=== PATIENT | male | born 1960 | race Caucasian/White ===

== ENCOUNTER 2017-09-01 20:36 | Observation (INO) | payer MEDICAID, OTHER ==
[~2017-09-01 20:36] MED LIST: ALPR1TAB3 PO; PERC5TAB12 PO
[2017-09-01] MEDS ORDERED: IOHEXOL 350 MG/ML 10 ML VIAL (for RAD DIAG) IVCONTRAST ONE (20:37)
[2017-09-01 20:43] VITALS: BP 168/95; PULSE 89; RESP 18; TEMP 98.2; O2SAT 96
--- NOTE | 2017-09-01 20:59 | PD ---
HPI Chief Complaint: Chest Pain Time Seen by Provider: 20:55 Travel History International Travel<30 days: No Contact w/Intl Traveler<30days: No Traveled to known affect area: No History of Present Illness HPI This is a 56-year-old male with history of tobacco use who presents for evaluation of chest pain. He reports that symptoms started last night when he was watching TV is mild sharp left-sided chest pain with some paresthesias in the proximal left arm. Throughout the day today he had some tightness in his chest. Symptoms worsened tonight which prompted evaluation. The pain is a sharp pain that radiates in the left side of his chest and back. No obvious aggravating or relieving factors. Some associated dyspnea and nausea. Denies cough, congestion, neck pain, head pain, abdominal pain, denies lower extremity edema. He reports that one month ago he traveled here from [place] and [address] trip. Denies any history of DVT or PE. Denies history of coronary artery disease. No other complaints. PFSH Past Medical History Diminished Hearing: No Social History Alcohol Use: Yes Tobacco Use: Yes Substance Use: Yes (COCAINE, NARCS) Allergies-Medications (Allergen,Severity, Reaction): Coded Allergies: duloxetine (Verified Allergy, Severe, rash, 09/01/17) Reported Meds & Prescriptions Reported Meds & Active Scripts Active Reported Famotidine 10 Mg Tab 10 Mg PO BID Finasteride 5 Mg Tab 5 Mg DAILY Do not crush. Oxycodone (Oxycodone HCl) 5 Mg Tab 5 Mg PO Q6H PRN Gabapentin 600 Mg Tab 1,200 Mg PO TID Review of Systems Except as stated in HPI: all other systems reviewed are Neg Physical Exam Narrative GENERAL: Well-developed well-nourished male in no acute distress SKIN: Warm and dry. HEAD: Atraumatic. Normocephalic. EYES: Pupils equal and round. No scleral icterus. No injection or drainage. ENT: No nasal bleeding or discharge. Mucous membranes pink and moist. NECK: Trachea midline. No JVD. CARDIOVASCULAR: Regular rate and rhythm. No murmur appreciated. RESPIRATORY: No accessory muscle use. Clear to auscultation. Breath sounds equal bilaterally. GASTROINTESTINAL: Abdomen soft, non-tender, nondistended. Hepatic and splenic margins not palpable. MUSCULOSKELETAL: No obvious deformities. No clubbing. No cyanosis. No edema. NEUROLOGICAL: Awake and alert. No obvious cranial nerve deficits. Motor grossly within normal limits. Normal speech. PSYCHIATRIC: Appropriate mood and affect; insight and judgment normal. Data Data Last Documented VS Vital Signs Date Time Temp Pulse Resp B/P (MAP) Pulse Ox O2 Delivery O2 Flow Rate FiO2 09/02/17 00:05 79 18 108/77 (87) 99 Room Air 09/01/17 20:43 98.2 Orders Orders Electrocardiogram (09/01/17 20:55) Basic Metabolic Panel (Bmp) (09/01/17 20:55) Ckmb (Isoenzyme) Profile (09/01/17 20:55) Complete Blood Count With Diff (09/01/17 20:55) Magnesium (Mg) (09/01/17 20:55) Prothrombin Time / Inr (Pt) (09/01/17 20:55) Act Partial Throm Time (Ptt) (09/01/17 20:55) Troponin I (09/01/17 20:55) Ecg Monitoring (09/01/17 20:55) Bilateral Bp Monitoring (09/01/17 20:55) Iv Access Insert/Monitor (09/01/17 20:55) Oximetry (09/01/17 20:55) Oxygen Administration (09/01/17 20:55) Aspirin Chew (Aspirin Chew) (09/01/17 21:00) Sodium Chloride 0.9% Flush (Ns Flush) (09/01/17 21:00) Nitroglycerin Sl (Nitrostat Sl) (09/01/17 21:00) Ct Pulmonary Angiogram (09/01/17 20:55) Chest, Pa & Lat (09/01/17 20:55) CKMB (09/01/17 21:05) CKMB% (09/01/17 21:05) Morphine Inj (Morphine Inj) (09/01/17 23:00) Ondansetron Odt (Zofran Odt) (09/01/17 23:00) Iohexol 350 Inj (Omnipaque 350 Inj) (09/01/17 20:37) Admit Order (Ed Use Only) (09/02/17 00:25) Labs Laboratory Tests Test 09/01/17 21:05 White Blood Count 6.4 TH/MM3 Red Blood Count 5.02 MIL/MM3 Hemoglobin 15.5 GM/DL Hematocrit 43.7 % Mean Corpuscular Volume 87.1 FL Mean Corpuscular Hemoglobin 30.9 PG Mean Corpuscular Hemoglobin Concent 35.4 % Red Cell Distribution Width 13.2 % Platelet Count 211 TH/MM3 Mean Platelet Volume 7.3 FL Neutrophils (%) (Auto) 52.9 % Lymphocytes (%) (Auto) 39.7 % Monocytes (%) (Auto) 5.8 % Eosinophils (%) (Auto) 1.3 % Basophils (%) (Auto) 0.3 % Neutrophils # (Auto) 3.4 TH/MM3 Lymphocytes # (Auto) 2.5 TH/MM3 Monocytes # (Auto) 0.4 TH/MM3 Eosinophils # (Auto) 0.1 TH/MM3 Basophils # (Auto) 0.0 TH/MM3 CBC Comment DIFF FINAL Differential Comment Prothrombin Time 10.5 SEC Prothromb Time International Ratio 1.0 RATIO Activated Partial Thromboplast Time 27.1 SEC Blood Urea Nitrogen 9 MG/DL Creatinine 0.84 MG/DL Random Glucose 96 MG/DL Calcium Level 8.7 MG/DL Magnesium Level 2.0 MG/DL Sodium Level 141 MEQ/L Potassium Level 3.8 MEQ/L Chloride Level 106 MEQ/L Carbon Dioxide Level 25.4 MEQ/L Anion Gap 10 MEQ/L Estimat Glomerular Filtration Rate 95 ML/MIN Total Creatine Kinase 118 U/L Creatine Kinase MB 1.4 NG/ML Troponin I LESS THAN 0.02 NG/ML MDM Medical Decision Making Medical Screen Exam Complete: Yes Emergency Medical Condition: Yes Medical Record Reviewed: Yes Differential Diagnosis Acute coronary syndrome, costochondritis, aortic dissection, pulmonary embolism , pneumothorax, hemothorax Narrative Course The patient was placed on ECG monitoring pulse oximetry, 12-lead EKG was obtained. Lab work, chest x-ray, CT pulmonary angiogram ordered. The patient took 81 mg of aspirin today, 243 mg additional aspirin ordered. Sublingual nitroglycerin ordered. The patient's pain improved with use of sublingual nitroglycerin. He was given morphine for back pain. At the end of my shift the patient was signed out to Dr. Hicks pending CT pulmonary angiogram results. Joe Dewitt September 01, 2017 20:59
[2017-09-01] MEDS ORDERED: SODIUM CHLORIDE 0.9% FLUSH 10 ML FLUSH IVF PRN (21:00)
[2017-09-01] MEDS ORDERED: ASPIRIN 81 MG CHEW TAB PO ONE (21:00)
[2017-09-01 21:01] VITALS: BP 136/97; PULSE 80; RESP 18; O2SAT 98
[2017-09-01] MEDS ORDERED: OXYC-392 PO (21:01)
[2017-09-01] MEDS ORDERED: GABA600T PO (21:01)
[2017-09-01] MEDS ORDERED: FINA5TAB2 (21:01)
[2017-09-01] MEDS ORDERED: FAMO1TAB30 PO (21:01)
[2017-09-01 21:03] VITALS: O2SAT 98
[2017-09-01] MEDS: NITROGLYCERIN 0.4 MG SL 25 TABS/BTL SL SCH ×3 (21:05→21:14)
--- NOTE | 2017-09-01 21:20 | RADRPT ---
EXAM DATE/TIME: 09/01/2017 21:05 [facility] COMPARISON: CHEST SINGLE AP, November 05, 2014, 14:18. INDICATIONS : Chest pain MEDICAL HISTORY : SURGICAL HISTORY : None. ENCOUNTER: Initial ACUITY: 4 - 6 days PAIN SCORE: 3/10 LOCATION: Bilateral chest FINDINGS: PA and lateral views of the chest demonstrate the lungs to be symmetrically aerated without evidence of mass, infiltrate or effusion. The cardiomediastinal contours are unremarkable. Osseous structure s are intact. CONCLUSION: No acute disease. Tanmay Pulliam MD on September 01, 2017 at 21:16 Board Certified Radiologist. This report was verified electronically.
[2017-09-01 21:21] VITALS: BP_SYST 137; BP_SYST 140; BP_DIAS 67; BP_DIAS 73; PULSE 78; RESP 18; O2SAT 98
[2017-09-01 21:30] LABS: AUTOMATED NEUTROPHIL # 3.4 TH/MM3 (1.8-7.7); BASOPHIL % 0.3 % (0.0-2.0); EOSINOPHIL # 0.1 TH/MM3 (0-0.4); EOSINOPHIL % 1.3 % (0.0-4.0); HEMATOCRIT 43.7 % (39.0-51.0); HEMOGLOBIN 15.5 GM/DL (13.0-17.0); LYMPH % 39.7 % (9.0-44.0); LYMPHOCYTE # 2.5 TH/MM3 (1.0-4.8); MEAN CELL VOLUME 87.1 FL (80.0-100.0); MEAN CORPUSCULAR HEMOGLOBIN 30.9 PG (27.0-34.0); MEAN CORPUSCULAR HGB CONC 35.4 % (32.0-36.0); MEAN PLATELET VOLUME 7.3 FL (7.0-11.0); MONO % 5.8 % (0.0-8.0); MONOCYTE # 0.4 TH/MM3 (0-0.9); NEUT % 52.9 % (16.0-70.0); PLATELET COUNT 211 TH/MM3 (150-450); RED BLOOD COUNT 5.02 MIL/MM3 (4.50-5.90); RED CELL DISTRIBUTION WIDTH 13.2 % (11.6-17.2); WHITE BLOOD COUNT 6.4 TH/MM3 (4.0-11.0)
[2017-09-01 21:42] LABS: PROTHROMBIN TIME - PATIENT 10.5 SEC (9.8-11.6)
[2017-09-01 22:07] LABS: BICARBONATE 25.4 MEQ/L (21.0-32.0); BLOOD UREA NITROGEN 9 MG/DL (7-18); CALCIUM 8.7 MG/DL (8.5-10.1); CHLORIDE 106 MEQ/L (98-107); CREATININE 0.84 MG/DL (0.60-1.30); GLOMERULAR FILTRATION RATE 95 ML/MIN (>89); GLUCOSE,RANDOM 96 MG/DL (74-106); SODIUM (NA) 141 MEQ/L (136-145)
[2017-09-01 22:13] LABS: TROPONIN I LESS THAN 0.02 NG/ML (0.02-0.05)
[2017-09-01 22:40] VITALS: BP 118/67; PULSE 70; RESP 16; O2SAT 98
[2017-09-01] MEDS ORDERED: ONDANSETRON ODT 4 MG TAB PO ONE (23:00)
[2017-09-01] MEDS ORDERED: MORPHINE SULFATE 4 MG/ML INJ IV PUSH ONE (23:00)
--- NOTE | 2017-09-01 23:07 | PD ---
Data Data Last Documented VS Vital Signs Date Time Temp Pulse Resp B/P (MAP) Pulse Ox O2 Delivery O2 Flow Rate FiO2 09/02/17 00:05 79 18 108/77 (87) 99 Room Air 09/01/17 20:43 98.2 Orders Orders Electrocardiogram (09/01/17 20:55) Basic Metabolic Panel (Bmp) (09/01/17 20:55) Ckmb (Isoenzyme) Profile (09/01/17 20:55) Complete Blood Count With Diff (09/01/17 20:55) Magnesium (Mg) (09/01/17 20:55) Prothrombin Time / Inr (Pt) (09/01/17 20:55) Act Partial Throm Time (Ptt) (09/01/17 20:55) Troponin I (09/01/17 20:55) Ecg Monitoring (09/01/17 20:55) Bilateral Bp Monitoring (09/01/17 20:55) Iv Access Insert/Monitor (09/01/17 20:55) Oximetry (09/01/17 20:55) Oxygen Administration (09/01/17 20:55) Aspirin Chew (Aspirin Chew) (09/01/17 21:00) Sodium Chloride 0.9% Flush (Ns Flush) (09/01/17 21:00) Nitroglycerin Sl (Nitrostat Sl) (09/01/17 21:00) Ct Pulmonary Angiogram (09/01/17 20:55) Chest, Pa & Lat (09/01/17 20:55) CKMB (09/01/17 21:05) CKMB% (09/01/17 21:05) Morphine Inj (Morphine Inj) (09/01/17 23:00) Ondansetron Odt (Zofran Odt) (09/01/17 23:00) Iohexol 350 Inj (Omnipaque 350 Inj) (09/01/17 20:37) Admit Order (Ed Use Only) (09/02/17 00:25) Labs Laboratory Tests Test 09/01/17 21:05 White Blood Count 6.4 TH/MM3 Red Blood Count 5.02 MIL/MM3 Hemoglobin 15.5 GM/DL Hematocrit 43.7 % Mean Corpuscular Volume 87.1 FL Mean Corpuscular Hemoglobin 30.9 PG Mean Corpuscular Hemoglobin Concent 35.4 % Red Cell Distribution Width 13.2 % Platelet Count 211 TH/MM3 Mean Platelet Volume 7.3 FL Neutrophils (%) (Auto) 52.9 % Lymphocytes (%) (Auto) 39.7 % Monocytes (%) (Auto) 5.8 % Eosinophils (%) (Auto) 1.3 % Basophils (%) (Auto) 0.3 % Neutrophils # (Auto) 3.4 TH/MM3 Lymphocytes # (Auto) 2.5 TH/MM3 Monocytes # (Auto) 0.4 TH/MM3 Eosinophils # (Auto) 0.1 TH/MM3 Basophils # (Auto) 0.0 TH/MM3 CBC Comment DIFF FINAL Differential Comment Prothrombin Time 10.5 SEC Prothromb Time International Ratio 1.0 RATIO Activated Partial Thromboplast Time 27.1 SEC Blood Urea Nitrogen 9 MG/DL Creatinine 0.84 MG/DL Random Glucose 96 MG/DL Calcium Level 8.7 MG/DL Magnesium Level 2.0 MG/DL Sodium Level 141 MEQ/L Potassium Level 3.8 MEQ/L Chloride Level 106 MEQ/L Carbon Dioxide Level 25.4 MEQ/L Anion Gap 10 MEQ/L Estimat Glomerular Filtration Rate 95 ML/MIN Total Creatine Kinase 118 U/L Creatine Kinase MB 1.4 NG/ML Troponin I LESS THAN 0.02 NG/ML MDM Medical Record Reviewed: Yes Supervised Visit with DICKSON: Yes Narrative Course During the course of the patient's emergency department visit, the patient's history, examination, and differential diagnosis were reviewed with the patient. The patient was placed on a cardiac cath rn with oximetry and frequent blood pressure monitoring. The patient had IV access obtained and blood work sent for analysis. The patient had an EKG done on arrival that shows a sinus rhythm heart rate of 82, QRS duration is 105 ms, QTC 402 ms. The patient on EKG is noted to have an S1 1 nightly 3T inverted in 3. The patient has T-wave inversion in V1. No acute ST segment elevation. The patient was initially provided aspirin 243 mg p.o. 1, nitroglycerin sublingual q. 5 minutes 3 as needed chest pain. The patient was provided morphine 4 mg IV, Zofran 4 mg ODT. The patient's laboratory studies were reviewed and remarkable for a CBC that is within normal limits, basic metabolic profile is within normal limits, magnesium 2, CPK 118, troponin I less than 0.02, PT 10.5, PTT 27.1. Radiology studies were reviewed and remarkable for a chest x-ray that shows no acute cardiopulmonary disease. CTA to rule out PE was pending at the conclusion of Joe shift. The patient' s case was checked out to me for final disposition after CT scan is resulted. I anticipate that the patient will be admitted to the chest pain center for rule out serial cardiac enzyme protocol followed by stress testing if the CTA is negative. The patient CTA is negative for PE or other acute abnormality. The patient's results were discussed with the patient, including the plan of care. I explained that further testing and/ or monitoring is indicated based on the patient's history, examination, and/ or laboratory findings. Therefore, I recommended admission for additional evaluation. The patient expressed understanding and was agreeable with this plan. The patient was admitted to the hospital in stable condition and sent to a bed under the care of the chest pain center. Diagnosis Primary Impression: Chest pain, rule out acute myocardial infarction Admitting Information Admitting Physician Requests: Observation Diana Hicks MD September 01, 2017 23:07
[2017-09-02 00:05] VITALS: BP 108/77; PULSE 79; RESP 18; O2SAT 99
--- NOTE | 2017-09-02 00:22 | RADRPT ---
EXAM DATE/TIME: 09/01/2017 23:34 [facility] COMPARISON: No previous studies available for comparison. INDICATIONS : Left sided chest pain. IV CONTRAST: 80 cc Omnipaque 350 (iohexol) IV RADIATION DOSE: 20.90 CTDIvol (mGy) MEDICAL HISTORY : Substance abuse SURGICAL HISTORY : ENCOUNTER: Initial ACUITY: 1 day PAIN SCALE: 7/10 LOCATION: Left chest TECHNIQUE: Volumetric scanning of the chest was performed using a pulmonary embolism protocol MIP images were re constructed. Using automated exposure control and adjustment of the mA and/or kV according to patien t size, radiation dose was kept as low as reasonably achievable to obtain optimal diagnostic quality images. DICOM format image data is available electronically for review and comparison. Follow-up recommendations for detected pulmonary nodules are based at a minimum on nodule size and pa tient risk factors according to Fleischner Society Guidelines. FINDINGS: No filling defects to suggest pulmonary embolus. Dependent atelectasis present in the lungs. There is no hilar, mediastinal or axillary adenopathy. No acute findings in the upper abdomen. Small hiatal hernia. CONCLUSION: 1. Negative for pulmonary embolus. No acute findings. Eriberto Juarez MD on September 02, 2017 at 0:10 Board Certified Radiologist. This report was verified electronically.
[2017-09-02] MEDS ORDERED: SODIUM CHLORIDE 0.9% FLUSH 10 ML FLUSH IV FLUSH PRN (00:30)
[2017-09-02] MEDS ORDERED: ACETAMINOPHEN 500 MG CPLT PO PRN (00:30)
[2017-09-02 01:13] LABS: TROPONIN I LESS THAN 0.02 NG/ML (0.02-0.05)
[2017-09-02 01:15] VITALS: BP 145/93; PULSE 64; RESP 18; TEMP 96; O2SAT 97
[2017-09-02] MEDS: ACETAMINOPHEN/HYDROcodone 325 MG/7.5 MG TAB PO PRN ×2 (01:40→06:11)
[2017-09-02 01:41] LABS: BILIRUBIN, URINE NEG (NEG); BLOOD, URINE NEG (NEG); GLUCOSE,URINE NEG (NEG); KETONE, URINE NEG (NEG); MUCUS URINE FEW /lpf (OCC); NITRITE,URINE NEG (NEG); PH, URINE 5.5 (5.0-8.5); URINE COLOR YELLOW (YELLW/STRAW); URINE LEUKOCYTE ESTERASE NEG (NEG)
[2017-09-02 03:48] VITALS: BP 108/75; PULSE 63; RESP 16; TEMP 97.5; O2SAT 96
[2017-09-02 03:55] LABS: TROPONIN I LESS THAN 0.02 NG/ML (0.02-0.05)
[2017-09-02 04:00] VITALS: RESP 16
[2017-09-02 08:16] VITALS: BP 121/80; PULSE 65; RESP 18; TEMP 97.6; O2SAT 95
--- NOTE | 2017-09-02 08:44 | EKG ---
Date Performed: 09/01/2017 Time Performed: 20:52:43 PTAGE: 56 years EKG: Sinus rhythm NORMAL ECG Since PREVIOUS TRACING , no significant change noted PREVIOUS TRACIN11/05/2014 11.21 DOCTOR: Ara Ly Interpretating Date/Time 09/02/2017 08:42:50
--- NOTE | 2017-09-02 08:45 | EKG ---
Date Performed: 09/02/2017 Time Performed: 00:41:41 PTAGE: 56 years EKG: Sinus rhythm WITH FIRST DEGREE AV BLOCK ABNORMAL ECG Since PREVIOUS TRACING , no significant change noted PREVIOUS TRACIN09/01/2017 20.52 DOCTOR: Ara Ly Interpretating Date/Time 09/02/2017 08:44:17
--- NOTE | 2017-09-02 08:46 | EKG ---
Date Performed: 09/02/2017 Time Performed: 03:24:17 PTAGE: 56 years EKG: SINUS BRADYCARDIA WITH FIRST DEGREE AV BLOCK EARLY REPOLARIZATION ABNORMAL ECG Since PREVIOUS TRACING , no significant change noted PREVIOUS TRACIN09/02/2017 00.41 DOCTOR: Ara Ly Interpretating Date/Time 09/02/2017 08:44:42
[2017-09-02] MEDS ORDERED: SODIUM CHLORIDE 0.9% FLUSH 10 ML FLUSH IV FLUSH SCH (09:00)
--- NOTE | 2017-09-02 10:32 | HHI.HP ---
HPI Primary Care Physician No Primary Care Physician Chief Complaint Chest pain History of Present Illness This is a 56-year-old male that presents to ED with complaint of a left-sided sharp chest discomfort that began 2 nights ago while in bed. Lasted about 20 minutes. He was not short of breath. Denied nausea or diaphoresis. Then it reoccurred last evening while also lying in bed. Also lasting 20 minutes. This time the area felt tender and he was short of breath. No nausea or diaphoresis. Denies recent illness. Denies fevers or chills. She has rheumatoid arthritis and has chronic back pain was not sure if this is related to his back or not. States he has had a stress test in the past. He was at a different facility a few years ago and had a stress test and states that it was okay. Currently denies chest discomfort. Review of Systems General: Patient denies fevers, chills, and recent travel. HEENT: Patient denies headache, sore throat, difficulty swallowing. Cardiovascular: Has the chest discomfort as mentioned above. Denies sensation of heart beating rapidly or irregularly. No syncope. Respiratory: He was short of breath last night. Denies inspirational chest discomfort. Denies coughing wheezing or hemoptysis. GI: Patient denies nausea, vomiting, diarrhea, abdominal pain, bloody stools. Musculoskeletal: Patient denies joint pain or edema. Denies calf pain or edema. Neurovascular: Patient denies numbness, tingling, weakness in extremities. Denies headache. Endocrine: Denies polyuria and polydipsia. Hematologic: Denies easy bruising. Skin: Denies rash or itching. Past Family Social History Allergies: Coded Allergies: duloxetine (Verified Allergy, Severe, rash, 09/01/17) Past Medical History Mature arthritis, chronic back pain, BPH, tobacco abuse. Past Surgical History Noncontributory. Reported Medications Reported Meds & Active Scripts Active Reported Famotidine 10 Mg Tab 10 Mg PO BID Finasteride 5 Mg Tab 5 Mg DAILY Do not crush. Oxycodone (Oxycodone HCl) 5 Mg Tab 5 Mg PO Q6H PRN Gabapentin 600 Mg Tab 1,200 Mg PO TID Active Ordered Medications Current Medications Medications (Trade) Dose Ordered Sig/Leisa Route Start Time Stop Time Status Last Admin (NS Flush) 2 ml UNSCH PRN IVF 09/01/17 21:00 (NS Flush) 2 ml UNSCH PRN IV FLUSH 09/02/17 00:30 (NS Flush) 2 ml BID IV FLUSH 09/02/17 09:00 (Tylenol) 500 mg Q4H PRN PO 09/02/17 00:30 ([place] 7.5-325 Mg) 1 tab Q4H PRN PO 09/02/17 00:30 09/02/17 06:11 Family History Denies family history of CAD. Social History Smokes about 1-2 cigarettes a day and has done so for about 15 years. Has occasional alcohol and states he had some wine last night. Denies illicit drug use. Physical Exam Vital Signs Vital Signs Date Time Temp Pulse Resp B/P (MAP) Pulse Ox O2 Delivery O2 Flow Rate FiO2 09/02/17 08:16 97.6 65 18 121/80 (94) 95 09/02/17 04:00 16 09/02/17 03:48 97.5 63 16 108/75 (86) 96 09/02/17 01:15 96.0 64 18 145/93 (110) 97 09/02/17 01:10 09/02/17 00:56 21 09/02/17 00:05 79 18 108/77 (87) 99 Room Air 09/01/17 22:40 70 16 118/67 (84) 98 Room Air 09/01/17 21:21 78 18 140/73 (95) 98 Room Air 137/67 (90) 09/01/17 21:03 98 Room Air 09/01/17 21:03 98 Room Air 09/01/17 21:01 80 18 136/97 (110) 98 Room Air 09/01/17 20:43 98.2 89 18 168/95 (119) 96 Physical Exam GENERAL: This is a well-nourished, well-developed patient, in no apparent distress. Patient speaks in clear complete sentences. Patient is pleasant. HEENT: Head is atraumatic and normocephalic. Neck is supple without lymphadenopathy and trachea is midline. No JVD or carotid bruits. CARDIOVASCULAR: Regular rate and rhythm without murmurs, gallops, or rubs. RESPIRATORY: Clear to auscultation. Breath sounds equal bilaterally. No wheezes , rales, or rhonchi. Chest wall is tender. No use of accessory muscles. GASTROINTESTINAL: Abdomen is nontender, nondistended. Abdomen soft. No obvious pulsatile mass or bruit. No CVA tenderness. Strong femoral pulses bilaterally. Normal bowel sounds in all quadrants. MUSCULOSKELETAL: Patient is moving upper and lower extremities freely. No calf tenderness or edema, no Homans sign. Strong pulses in upper and lower extremities. NEUROLOGICAL: Patient is alert and oriented. Cranial nerves 2-12 are grossly intact. No focal deficits and speech is clear. SKIN: No rash and turgor is normal. Laboratory Laboratory Tests Test 09/01/17 21:05 09/02/17 00:40 09/02/17 01:15 09/02/17 03:12 White Blood Count 6.4 Red Blood Count 5.02 Hemoglobin 15.5 Hematocrit 43.7 Mean Corpuscular Volume 87.1 Mean Corpuscular Hemoglobin 30.9 Mean Corpuscular Hemoglobin Concent 35.4 Red Cell Distribution Width 13.2 Platelet Count 211 Mean Platelet Volume 7.3 Neutrophils (%) (Auto) 52.9 Lymphocytes (%) (Auto) 39.7 Monocytes (%) (Auto) 5.8 Eosinophils (%) (Auto) 1.3 Basophils (%) (Auto) 0.3 Neutrophils # (Auto) 3.4 Lymphocytes # (Auto) 2.5 Monocytes # (Auto) 0.4 Eosinophils # (Auto) 0.1 Basophils # (Auto) 0.0 CBC Comment DIFF FINAL Differential Comment Prothrombin Time 10.5 Prothromb Time International Ratio 1.0 Activated Partial Thromboplast Time 27.1 Blood Urea Nitrogen 9 Creatinine 0.84 Random Glucose 96 Calcium Level 8.7 Magnesium Level 2.0 Sodium Level 141 Potassium Level 3.8 Chloride Level 106 Carbon Dioxide Level 25.4 Anion Gap 10 Estimat Glomerular Filtration Rate 95 Total Creatine Kinase 118 93 83 Creatine Kinase MB 1.4 Troponin I LESS THAN 0.02 LESS THAN 0.02 LESS THAN 0.02 Urine Color YELLOW Urine Turbidity CLEAR Urine pH 5.5 Urine Specific Percival 1.049 Urine Protein NEG Urine Glucose (UA) NEG Urine Ketones NEG Urine Occult Blood NEG Urine Nitrite NEG Urine Bilirubin NEG Urine Urobilinogen LESS THAN 2.0 Urine Leukocyte Esterase NEG Urine RBC LESS THAN 1 Urine WBC 1 Urine Mucus FEW Microscopic Urinalysis Comment CULT NOT INDICATED Result Diagram: 09/01/17210409/01/172104 Imaging Last 48 hours Impressions Chest X-Ray 09/01/[id number] Signed Impressions: Service Date/Time: Friday, September 01, 2017 21:05 - CONCLUSION: No acute disease. Tanmay Pulliam MD CT Angiography [id number]/01/[id number] Signed Impressions: Service Date/Time: Friday, September 01, 2017 23:34 - CONCLUSION: 1. Negative for pulmonary embolus. No acute findings. Eriberto Juarez MD Course EKGs are sinus rhythm without significant ST segment depressions or elevations. Caprini VTE Risk Assessment Caprini VTE Risk Assessment: No/Low Risk (score <= 1) Caprini Risk Assessment Model Point Value = 1 Point Value = 2 Point Value = 3 Point Value = 5 Age 41-60 Minor surgery BMI > 25 kg/m2 Swollen legs Varicose veins or History of unexplained or recurrent spontaneous Oral contraceptives or hormone replacement Sepsis (< 1 month) Serious lung disease, including pneumonia (< 1 month) Abnormal pulmonary function Acute myocardial infarction Congestive heart failure (< 1 month) History of inflammatory bowel disease Medical patient at bed rest Age 61-74 Arthroscopic surgery Major open surgery (> 45 min) Laparoscopic surgery (> 45 min) Malignancy Confined to bed (> 72 hours) Immobilizing plaster cast Central venous access Age >= 75 History of VTE Family history of VTE Factor V Leiden Prothrombin [id number] Lupus anticoagulant Anticardiolipin antibodies Elevated serum homocysteine Heparin-induced thrombocytopenia Other congenital or acquired thrombophilia Stroke (< 1 month) Elective arthroplasty Hip, pelvis, or leg fracture Acute spinal cord injury (< 1 month) Prophylaxis Regimen Total Risk Factor Score Risk Level Prophylaxis Regimen 0-1 Low Early ambulation 2 Moderate Order ONE of the following: *Sequential Compression Device (SCD) *Heparin 5000 units SQ BID 3-4 Higher Order ONE of the following medications: *Heparin 5000 units SQ TID *Enoxaparin/Lovenox 40 mg SQ daily (WT < 150 kg, CrCl > 30 mL/min) *Enoxaparin/Lovenox 30 mg SQ daily (WT < 150 kg, CrCl > 10-29 mL/min) *Enoxaparin/Lovenox 30 mg SQ BID (WT < 150 kg, CrCl > 30 mL/min) AND/OR *Sequential Compression Device (SCD) 5 or more Highest Order ONE of the following medications: *Heparin 5000 units SQ TID (Preferred with Epidurals) *Enoxaparin/Lovenox 40 mg SQ daily (WT < 150 kg, CrCl > 30 mL/min) *Enoxaparin/Lovenox 30 mg SQ daily (WT < 150 kg, CrCl > 10-29 mL/min) *Enoxaparin/Lovenox 30 mg SQ BID (WT < 150 kg, CrCl > 30 mL/min) AND *Sequential Compression Device (SCD) Assessment and Plan Assessment and Plan * Chest pain: Patient has had serial cardiac enzymes and EKGs for ruling out purposes. He was seen by Dr. Ly of cardiology in the chest pain center. Lexiscan was ordered. Plan was to discharge patient Lexiscan was nonischemic however the patient's nurse informed me that the patient has already left AGAINST MEDICAL ADVICE. I was not able to have a conversation with the patient prior that he left rather abruptly. Pa Mayorga September 02, 2017 10:32
== END 2017-09-02 13:59 | disposition left against medical advice (07) ==
LOC: NEPE 20:36 → NEDA 09-02 00:30 → NEPFCDU 09-02 01:20
PROVIDERS: ADMIT Internal Medicine Cardiovascular Disease; ATTEND Internal Medicine Cardiovascular Disease
DX: R07.89 Other chest pain (principal); R06.02 Shortness of breath; I44.0 Atrioventricular block, first degree; R00.1 Bradycardia, unspecified; R94.31 Abnormal electrocardiogram [ECG] [EKG]; R06.00 Dyspnea, unspecified; R11.0 Nausea; R20.2 Paresthesia of skin; K44.9 Diaphragmatic hernia without obstruction or gangrene; M06.9 Rheumatoid arthritis, unspecified; M54.9 Dorsalgia, unspecified; G89.29 Other chronic pain; N40.0 Benign prostatic hyperplasia without lower urinary tract symptoms; F17.210 Nicotine dependence, cigarettes, uncomplicated
CPT/HCPCS: 71046; 71275; 80048; 81001; 82550; 82552; 83735; 84484; 85025; 85610; 85730; 93005; 96374; 99285; G0378; J2270; Q9967

== ENCOUNTER 2017-10-09 04:22 | Emergency (ER) | payer MEDICAID ==
[~2017-10-09] VITALS: Ht 190.5 cm; Wt 100.0 kg
[~2017-10-09 04:22] MED LIST changes: -ALPR1TAB3 PO; +FAMO1TAB30 PO; +FINA5TAB2; +GABA600T PO; +OXYC-392 PO; -PERC5TAB12 PO
[2017-10-09 04:39] VITALS: BP 155/88; PULSE 77; RESP 18; TEMP 97.6; O2SAT 96
== END 2017-10-09 04:45 | disposition left against medical advice (07) ==
LOC: NED 04:40
DX: R05 Cough (principal); Z53.21 Procedure and treatment not carried out due to patient leaving prior to being seen by health care provider
CPT/HCPCS: 99281